=== PATIENT | female | born 1950 | race Caucasian/White ===

== ENCOUNTER 2018-12-10 10:08 | Emergency (ER) | payer MEDICARE ==
[2018-12-10 10:30] VITALS: BP 126/43
--- NOTE | 2018-12-10 11:03 | UC ---
Lower Extremity/Ankle HPI - HPI Summary HPI Summary: 68-year-old woman comes in with a chief complaint of right foot pain and redness. About a week ago patient started with pain on the medial dorsal aspect of the right foot. Also some redness in this area. Gradually redness has progressed up into the ankle. No fevers or chills no skin break. Pain is worse with activity. Minimal pain with weightbearing. Patient does work out in the gym. No calf pain or upper leg pain. She has put on support hose on which does help decrease the pain. She has been taking a full aspirin a day. - History of Current Complaint Chief Complaint: UCLowerExtremity Stated Complaint: RT FOOT PAIN/SWELLING Time Seen by Provider: 12/10/18 10:51 Pain Intensity: 4 - Allergies/Home Medications Allergies/Adverse Reactions: Allergies Allergy/AdvReac Type Severity Reaction Status Date / Time No Known Allergies Allergy Verified 12/10/18 10:30 Home Medications: Home Medications Aspirin 81 mg CHEW TAB* [Aspirin Low Dose TAB*] 81 mg PO DAILY 12/10/18 [ History Confirmed 12/10/18] Aspirin TAB* [Aspirin 325 MG TAB*] 325 mg PO DAILY 12/10/18 [History Confirmed 12/10/18] Lisinopril 5 mg PO 12/10/18 [History Confirmed 12/10/18] PMH/Surg Hx/FS Hx/Imm Hx Previously Healthy: Yes Cardiovascular History: Hypertension - Surgical History Surgical History: Yes Surgery Procedure, Year, and Place: 1984 BACK [place]. 1986 ORIF RT ANKLE [place]. 1975 [facility]OMY [facility]. 2006 FX CLAVICLE CHEST TUBE ED [place] - Family History Known Family History: Positive: Non-Contributory - Social History Alcohol Use: Occasionally Substance Use Type: None Smoking Status (MU): Never Smoked Tobacco Review of Systems All Other Systems Reviewed And Are Negative: Yes Constitutional: Positive: Negative Skin: Positive: Other - see hpi Eyes: Positive: Negative ENT: Positive: Negative Respiratory: Positive: Negative Cardiovascular: Positive: Negative Gastrointestinal: Positive: Negative Motor: Positive: Negative Neurovascular: Positive: Negative Musculoskeletal: Positive: Other: - see hpi Neurological: Positive: Negative Psychological: Positive: Negative Is Patient Immunocompromised?: No Physical Exam Triage Information Reviewed: Yes Appearance: Well-Appearing, No Pain Distress, Well-Nourished Vital Signs: Initial Vital Signs Temp 97.9 F 12/10/18 10:26 Pulse 58 12/10/18 10:26 Resp 18 12/10/18 10:26 BP 126/43 12/10/18 10:26 Pulse Ox 100 12/10/18 10:26 Vital Signs Reviewed: Yes Eye Exam: Normal Eyes: Positive: Conjunctiva Clear Neck: Positive: Supple Respiratory: Positive: No respiratory distress Musculoskeletal: Positive: Strength Intact, ROM Intact, No Edema, Other: - mild tenderness to palpation on medial dorsal aspect of rt foot Neurological: Positive: Alert, Muscle Tone Normal Psychological Exam: Normal Psychological: Positive: Age Appropriate Behavior Skin: Positive: Other - linear non blanching erythema dorsal medial aspect of rt foot Lower Extremity Course/Dx - Course Course Of Treatment: Patient Name: TOM SCHUMACHER Medical Record#: [id number] Ordering Physician: Michael Kelly MD Acct.#: [id number] : 1950 Age: 68 Sex: F Location: [facility] Exam Date: 12/10/18 1058 ADM Status: REG ER Order Information: VL LOWER EXT VEINS RIGHT Accession Number: [id number] CPT: 58123 HISTORY: rle redness/pain COMPARISONS: None relevant TECHNIQUE: Multiple transverse and longitudinal ultrasound images were obtained of the right lower extremity from the level of the common femoral vein inferiorly through to the infrapopliteal veins using grayscale, color Doppler, and spectral Doppler imaging with and without compression and with augmentation. Comparison images were obtained of the contralateral common femoral vein. FINDINGS: VEINS: There are thrombosed subcutaneous veins along the right anterior foot extending into the greater saphenous vein into the calf, distant from the confluence with the common femoral vein. The remainder of the venous system of the right lower extremity is compressible throughout its course, with normal flow on color Doppler imaging and normal response to augmentation on spectral Doppler imaging. SOFT TISSUES: Unremarkable. OTHER FINDINGS: None. IMPRESSION: SUPERFICIAL THROMBOPHLEBITIS. NO RIGHT LOWER EXTREMITY DEEP VEIN THROMBOSIS. <Electronically signed by Andrew Zamarripa MD in OV> 12/10/18 I discussed the venous Doppler report with the patient. At this time we'll treat with ibuprofen 600 mg by mouth 3 times a day. Patient can continue to stay active. When she is resting she'll but the leg up. Discussed going to use either warmth are cool on the area. She has a follow-up with her primary care doctor scheduled for December 15, 2018. I recommended that she discuss this with her primary care physician at that time. We also discussed that if anything got worse in the meantime if the pain started coming up into the calf she got any shortness of breath or chest pain she needs to get reevaluated again right away. - Differential Dx/Diagnosis Provider Diagnosis: Superficial phlebitis of right leg Discharge - Sign-Out/Discharge Documenting (check all that apply): Patient Departure All imaging exams completed and their final reports reviewed: Yes - Discharge Plan Condition: Stable Disposition: HOME Patient Education Materials: Superficial Thrombophlebitis (ED) Referrals: Leila Deutsch MD [Primary Care Provider] - Additional Instructions: FOLLOW UP WITH YOUR DOCTOR ON 12/15/18 SCHEDULED. GET RECHECKED SOONER IF YOUR CONDITION WORSENS; PAIN OR SWELLING MOVES UP THE LEG, CHEST PAIN, SHORTNESS OF BREATH, YOU FEEL ILL OR ANY QUESTIONS OR CONCERNS. - Billing Disposition and Condition Condition: STABLE Disposition: Home
== END 2018-12-10 12:15 | disposition home or self-care (01) ==
LOC: UCEAST 10:08
DX: I80.8 Phlebitis and thrombophlebitis of other sites (principal); I10 Essential (primary) hypertension
CPT/HCPCS: 99211; G0463